=== PATIENT | female | born 1935 | race Caucasian/White ===

== ENCOUNTER 2017-02-21 11:23 | Emergency (ER) | payer OTHER ==
[~2017-02-21] VITALS: Ht 165.1 cm; Wt 98.7 kg
[~2017-02-21 11:23] MED LIST: ATOR40TA78 PO; LEVO125T5 PO; LISI1TAB3 PO; MELO-184 PO; METF500T4 PO; OMEP40CA6 PO
[2017-02-21 13:33] VITALS: BP 144/82
[2017-02-21 13:42] LABS: BLOOD UREA NITROGEN 13 mg/dL (7-18)
[2017-02-21 13:54] LABS: IS PT STATUS REG ER OR PRE ER? YES
== END 2017-02-21 16:07 | disposition home or self-care (01) ==
LOC: ED 14:28
DX: M13.132 Monoarthritis, not elsewhere classified, left wrist (principal); E11.9 Type 2 diabetes mellitus without complications; I11.0 Hypertensive heart disease with heart failure; I50.9 Heart failure, unspecified; F17.200 Nicotine dependence, unspecified, uncomplicated
CPT/HCPCS: 29125; 36415; 71020; 80048; 82040; 83880; 84484; 85025; 85651; 86140; 93005

== ENCOUNTER 2017-04-20 08:04 | Emergency (ER) | payer OTHER ==
[~2017-04-20] VITALS: Ht 165.1 cm; Wt 102.2 kg
[2017-04-20 08:26] VITALS: BP 145/71
[2017-04-20] MEDS ORDERED: ACETAMINOPHEN 325 MG TABLET PO ONE (08:30)
[2017-04-20] MEDS ORDERED: ACETAMINOPHEN 325 MG TABLET ONE (08:35)
== END 2017-04-20 11:26 | disposition home or self-care (01) ==
LOC: ED 09:27
DX: S83.92XA Sprain of unspecified site of left knee, initial encounter (principal); I11.0 Hypertensive heart disease with heart failure; I50.9 Heart failure, unspecified; E11.9 Type 2 diabetes mellitus without complications; E87.1 Hypo-osmolality and hyponatremia; Z85.3 Personal history of malignant neoplasm of breast; F17.210 Nicotine dependence, cigarettes, uncomplicated; X58.XXXA Exposure to other specified factors, initial encounter; Y93.89 Activity, other specified; Y99.8 Other external cause status; Y92.009 Unspecified place in unspecified non-institutional (private) residence as the place of occurrence of the external cause
CPT/HCPCS: 29505; 99284

== ENCOUNTER → 2017-06-27 | Outpatient (CLI) | payer OTHER ==
[~2017-06-27] MED LIST changes: -MELO-184 PO; +MELO15TA24 PO
== END | disposition home or self-care (01) ==
LOC: CFH 14:41
PROVIDERS: ATTEND Internal Medicine Cardiovascular Disease
DX: Z01.818 Encounter for other preprocedural examination (principal); I51.7 Cardiomegaly; I10 Essential (primary) hypertension; E11.9 Type 2 diabetes mellitus without complications; Z85.3 Personal history of malignant neoplasm of breast; Z87.891 Personal history of nicotine dependence; Z92.3 Personal history of irradiation
CPT/HCPCS: 93306

== ENCOUNTER → 2017-07-05 | Outpatient (CLI) | payer OTHER ==
[~2017-07-05] MED LIST changes: +REGADENOSON 0.4 MG/5 ML SYRINGE ONE
== END | disposition home or self-care (01) ==
LOC: RAD 10:56
PROVIDERS: ATTEND Internal Medicine Cardiovascular Disease
DX: I10 Essential (primary) hypertension (principal)
CPT/HCPCS: 78452; 93017; A9502; C9898; J2785

== ENCOUNTER 2018-01-21 09:02 | Inpatient (IN) | payer OTHER ==
[~2018-01-21] VITALS: Ht 165.1 cm; Wt 89.1 kg
[~2018-01-21 09:02] MED LIST changes: -REGADENOSON 0.4 MG/5 ML SYRINGE ONE
[2018-01-21] MEDS ORDERED: ALBUTEROL/IPRATROPIUM 2.5MG/0.5MG, 3 ML NPPB ONE (10:00)
[2018-01-21] MEDS ORDERED: ALBUTEROL/IPRATROPIUM 2.5MG/0.5MG, 3 ML ONE ×3 (10:02→19:55)
[2018-01-21 10:27] LABS: MEAN CORPUSCULAR HEMOGLOBIN 34.7 pg (27.0-34.8); MEAN CORPUSCULAR HGB CONC 33.9 g/dL (32.4-35.8); MEAN CORPUSCULAR VOLUME 102.3 fL (80-100); MEAN PLATELET VOLUME 6.7 fL (7.4-10.4); PLATELET COUNT 259 x10^3/uL (130-400); RED BLOOD COUNT 3.78 x10^6/uL (3.82-5.3); RED CELL DISTRIBUTION WIDTH 14.2 % (9.6-15.2)
[2018-01-21 10:32] LABS: INTERNATIONAL NORMALIZED RATIO 1.04 (0.93-1.1); PROTHROMBIN TIME 10.7 Seconds (9.6-11.5)
[2018-01-21 10:36] LABS: ALANINE AMINOTRANSFERASE 43 U/L (12-78); ALBUMIN 2.4 g/dL (3.4-5.0); ANION GAP 10 mmol/L (5-15); CALCIUM 8.6 mg/dL (8.5-10.1); CHLORIDE 92 mmol/L (98-107); CREATININE 1.45 mg/dL (0.55-1.02)
[2018-01-21 10:40] LABS: ALKALINE PHOSPHATASE 126 U/L (45-117); BILIRUBIN,TOTAL 0.9 mg/dL (0.2-1.0); TOTAL PROTEIN 6.5 g/dL (6.4-8.2); TROPONIN I < 0.015 ng/mL (0.000-0.045)
[2018-01-21] MEDS ORDERED: SODIUM CHLORIDE FLUSH 10ML SYR IVF ONE (11:00)
[2018-01-21 11:04] LABS: MD YES
[2018-01-21 11:07] LABS: BAND#(MANUAL) 1.74 x10^3/uL; BANDS%(MANUAL) 15 % (0-7); LYMPH#(MANUAL) 1.28 x10^3/uL (1-3.4); LYMPHS% (MANUAL) 11 % (22-44); METAMYELOCYTES# (MANUAL) 0.12 x10^3/uL (0-0); METAMYELOCYTES% (MANUAL) 1 % (0-1); MONOS#(MANUAL) 0.58 x10^3/uL (0.3-2.7); MONOS% (MANUAL) 5 % (2-9); REACTIVE LYMPHS # (MANUAL) 0.12 x10^3/uL (0-0); REACTIVE LYMPHS % (MANUAL) 1 % (0-0)
[2018-01-21 11:12] LABS: OTHER CELLS # (MANUAL) 0.23 x10^3/uL (0-0); OTHER CELLS % (MANUAL) 2 % (0-0); SEG#(MANUAL) 7.54 x10^3/uL (1.8-6.8); SEGS% (MANUAL) 65 % (42-75)
[2018-01-21 11:14] LABS: <RBC MORPHOLOGY> NORMAL; TOXIC GRAN 2+
[2018-01-21 11:15] LABS: <PLATELET ESTIMATE> ADEQUATE; <PLT MORPHOLOGY> NORMAL PLT MORPH; PMNS WITH VACUOLES 1+
[2018-01-21] MEDS ORDERED: HYDR-882 PO (11:38)
[2018-01-21] MEDS ORDERED: TURM500C7 PO (11:38)
[2018-01-21] MEDS ORDERED: CEFTRIAXONE PMX 1GM/50ML 50 ML ONE (11:40)
[2018-01-21] MEDS ORDERED: KETOROLAC 30 MG/1 ML ONE (11:46)
[2018-01-21] MEDS ORDERED: CEFTRIAXONE PMX 1GM/50ML 50 ML IV ONE (12:00)
[2018-01-21] MEDS ORDERED: ONDANSETRON ODT 4 MG PO PRN (13:00)
[2018-01-21] MEDS ORDERED: ONDANSETRON 2MG/ML, 2ML IVPush PRN (13:00)
[2018-01-21] MEDS ORDERED: LABETALOL 5MG/ML, 20ML IVPush PRN (13:00)
[2018-01-21] MEDS ORDERED: KETOROLAC 30 MG/1 ML IVPush ONE (13:00)
[2018-01-21] MEDS: SODIUM CHLORIDE 0.9% 1,000 ML IV SCH ×2 (13:30→21:21)
[2018-01-21 14:01] VITALS: BP 111/66
[2018-01-21 14:11] LABS: FREE T4 (FREE THYROXINE) 1.52 ng/dL (0.76-1.46); THYROID STIMULATING HORMONE 1.1 mIU/L (0.358-3.740)
[2018-01-21 14:12] LABS: FOLATE LEVEL 7.2 ng/mL (3.1-17.5)
[2018-01-21] MEDS: CEFTRIAXONE PMX 2GM/50ML 50 ML IV SCH (14:14)
[2018-01-21] MEDS ORDERED: METF850T2 PO (14:26)
[2018-01-21] MEDS ORDERED: LEVO112T4 PO (14:27)
[2018-01-21 14:49] LABS: MICROSCOPIC INDICATED
[2018-01-21] MEDS: ENOXAPARIN 40 MG/0.4 ML SQ SCH (15:06)
[2018-01-21] MEDS: GUAIFENESIN 200 MG TABLET PO SCH ×2 (15:06→21:16)
[2018-01-21] MEDS: methylPREDNISolone SOD SUCC 125 MG/2 ML IVPush SCH ×2 (15:07→21:16)
[2018-01-21 19:38] VITALS: BP 128/74
[2018-01-21] MEDS: DOXYCYCLINE 100MG TABLET PO SCH (21:16)
[2018-01-21] MEDS ORDERED: ALBUTEROL/IPRATROPIUM 2.5MG/0.5MG, 3 ML NPPB PRN (22:30)
[2018-01-22 03:09] VITALS: BP 137/62
[2018-01-22] MEDS: methylPREDNISolone SOD SUCC 125 MG/2 ML IVPush SCH ×2 (03:13→09:03)
[2018-01-22 04:43] LABS: BASOPHILS # (AUTO) 0.01 x10^3/uL (0-0.1); BASOPHILS % (AUTO) 0 % (0-1); EOSINOPHILS % (AUTO) 0 % (1-7); LYMPHOCYTES # (AUTO) 0.63 x10^3/uL (1-3.4); LYMPHOCYTES % (AUTO) 10 % (22-44); MD NO; MEAN CORPUSCULAR HEMOGLOBIN 33.8 pg (27.0-34.8); MEAN CORPUSCULAR HGB CONC 33.1 g/dL (32.4-35.8); MEAN CORPUSCULAR VOLUME 102.3 fL (80-100); MEAN PLATELET VOLUME 6.7 fL (7.4-10.4); MONOCYTES # (AUTO) 0.14 x10^3/uL (0.2-0.8); MONOCYTES % (AUTO) 2 % (2-9); NEUTROPHILS # (AUTO) 5.75 x10^3/uL (1.8-6.8); NEUTROPHILS % (AUTO) 88 % (42-75); PLATELET COUNT 238 x10^3/uL (130-400); RED BLOOD COUNT 3.47 x10^6/uL (3.82-5.3); RED CELL DISTRIBUTION WIDTH 14.5 % (9.6-15.2)
[2018-01-22 04:51] LABS: ANION GAP 9 mmol/L (5-15); CALCIUM 8.5 mg/dL (8.5-10.1); CHLORIDE 94 mmol/L (98-107)
[2018-01-22 04:54] LABS: ALANINE AMINOTRANSFERASE 52 U/L (12-78); ALKALINE PHOSPHATASE 138 U/L (45-117); BILIRUBIN,TOTAL 0.7 mg/dL (0.2-1.0); CREATININE 1.15 mg/dL (0.55-1.02); TOTAL PROTEIN 5.9 g/dL (6.4-8.2)
[2018-01-22] MEDS: SODIUM CHLORIDE 0.9% 1,000 ML IV SCH (05:21)
[2018-01-22] MEDS: GUAIFENESIN 200 MG TABLET PO SCH ×4 (06:39→23:53)
[2018-01-22] MEDS: ALBUTEROL/IPRATROPIUM 2.5MG/0.5MG, 3 ML NPPB SCH ×4 (06:50→19:03)
[2018-01-22] MEDS ORDERED: PANTOPRAZOLE 40 MG IV IVPush SCH (07:30)
[2018-01-22] MEDS: LEVOTHYROXINE 112 MCG TABLET PO SCH (07:46)
[2018-01-22 08:02] VITALS: BP 117/62
[2018-01-22] MEDS ORDERED: TEMPLATE NON-FORMULARY MED. (Omeprazole** 40 MG) PO SCH (09:00)
[2018-01-22] MEDS: SENNA/DOCUSATE TABLET PO SCH (09:00)
[2018-01-22] MEDS: DOXYCYCLINE 100MG TABLET PO SCH ×2 (09:03→21:04)
[2018-01-22 10:23] LABS: CREATININE,URINE RANDOM 55.2 mg/dL
[2018-01-22] MEDS: prednisOLONE 15 MG/5 ML ORAL SOLN PO SCH (11:37)
[2018-01-22] MEDS ORDERED: OMNIPAQUE 350 MG/ML, 75ML BOTTLE ONE (13:13)
[2018-01-22] MEDS: ENOXAPARIN 40 MG/0.4 ML SQ SCH (14:23)
[2018-01-22 14:40] LABS: RAPID INFLUENZA A Negative (Negative); RAPID INFLUENZA B Negative (Negative)
[2018-01-22 15:02] VITALS: BP 114/61
[2018-01-22] MEDS: CEFTRIAXONE PMX 2GM/50ML 50 ML IV SCH (15:52)
[2018-01-22] MEDS: ACETAMINOPHEN 325 MG TABLET PO PRN (15:52)
[2018-01-22 16:11] LABS: ANION GAP 9 mmol/L (5-15); CALCIUM 8.8 mg/dL (8.5-10.1); CHLORIDE 95 mmol/L (98-107); CREATININE 1.17 mg/dL (0.55-1.02)
[2018-01-22 19:17] VITALS: BP 130/57
[2018-01-22] MEDS: ATORVASTATIN 40 MG TABLET PO SCH (21:04)
[2018-01-23 01:53] VITALS: BP 145/74
[2018-01-23] MEDS: ACETAMINOPHEN 325 MG TABLET PO PRN (02:24)
[2018-01-23 04:38] LABS: MEAN CORPUSCULAR HGB CONC 33.2 g/dL (32.4-35.8); MEAN CORPUSCULAR VOLUME 102.3 fL (80-100); MEAN PLATELET VOLUME 6.9 fL (7.4-10.4); PLATELET COUNT 273 x10^3/uL (130-400); RED BLOOD COUNT 3.52 x10^6/uL (3.82-5.3); RED CELL DISTRIBUTION WIDTH 14.5 % (9.6-15.2)
[2018-01-23 04:49] LABS: ALANINE AMINOTRANSFERASE 117 U/L (12-78); ANION GAP 8 mmol/L (5-15); CALCIUM 8.8 mg/dL (8.5-10.1); CHLORIDE 95 mmol/L (98-107); CREATININE 1.28 mg/dL (0.55-1.02)
[2018-01-23 04:52] LABS: ALKALINE PHOSPHATASE 132 U/L (45-117); BILIRUBIN,TOTAL 0.4 mg/dL (0.2-1.0); TOTAL PROTEIN 5.9 g/dL (6.4-8.2)
[2018-01-23] MEDS: LEVOTHYROXINE 112 MCG TABLET PO SCH (05:33)
[2018-01-23] MEDS: GUAIFENESIN 200 MG TABLET PO SCH ×4 (05:33→19:49)
[2018-01-23 05:49] LABS: BASOPHILS # (AUTO) 0.02 x10^3/uL (0-0.1); BASOPHILS % (AUTO) 0 % (0-1); EOSINOPHILS % (AUTO) 0 % (1-7); LYMPHOCYTES # (AUTO) 1.11 x10^3/uL (1-3.4); LYMPHOCYTES % (AUTO) 8 % (22-44); MD SCAN; MONOCYTES # (AUTO) 0.99 x10^3/uL (0.2-0.8); MONOCYTES % (AUTO) 7 % (2-9); NEUTROPHILS # (AUTO) 12.03 x10^3/uL (1.8-6.8); NEUTROPHILS % (AUTO) 85 % (42-75)
[2018-01-23] MEDS: ALBUTEROL/IPRATROPIUM 2.5MG/0.5MG, 3 ML NPPB SCH ×4 (07:00→20:19)
[2018-01-23 07:30] VITALS: BP 124/67
[2018-01-23] MEDS: PANTOPROZOLE 40MG TABLET PO SCH (07:56)
[2018-01-23] MEDS ORDERED: CEFTRIAXONE PMX 2GM/50ML 50 ML IV SCH (08:00)
[2018-01-23] MEDS ORDERED: CEFTRIAXONE 2 GM in DEXTROSE 5% 100 ML IVPB SCH (08:00)
[2018-01-23] MEDS: CYANOCOBALAMIN 1,000 MCG TABLET PO SCH (08:32)
[2018-01-23] MEDS: DOXYCYCLINE 100MG TABLET PO SCH ×2 (08:32→19:49)
[2018-01-23] MEDS: FOLIC ACID 1 MG TABLET PO SCH (08:33)
[2018-01-23] MEDS: prednisOLONE 15 MG/5 ML ORAL SOLN PO SCH (08:33)
[2018-01-23] MEDS: SENNA/DOCUSATE TABLET PO SCH (08:34)
[2018-01-23] MEDS: INSULIN LISPRO 100 UNITS/ML, PEN SQ-INSULIN SCH ×3 (12:54→20:43)
[2018-01-23 13:58] LABS: ANION GAP 9 mmol/L (5-15); CALCIUM 8.7 mg/dL (8.5-10.1); CHLORIDE 97 mmol/L (98-107); CREATININE 1.19 mg/dL (0.55-1.02)
[2018-01-23] MEDS: ENOXAPARIN 40 MG/0.4 ML SQ SCH (14:37)
[2018-01-23 15:35] VITALS: BP 127/73
[2018-01-23 19:32] VITALS: BP 130/71
[2018-01-23] MEDS: ATORVASTATIN 40 MG TABLET PO SCH (19:49)
[2018-01-23] MEDS ORDERED: IBUPROFEN 200 MG TABLET ONE (21:17)
[2018-01-23] MEDS ORDERED: IBUPROFEN 200 MG TABLET PO ONE (21:30)
[2018-01-24 03:00] VITALS: BP 165/66
[2018-01-24 05:29] LABS: BASOPHILS # (AUTO) 0.02 x10^3/uL (0-0.1); BASOPHILS % (AUTO) 0 % (0-1); EOSINOPHILS # (AUTO) 0.03 x10^3/uL (0-0.4); EOSINOPHILS % (AUTO) 0 % (1-7); LYMPHOCYTES # (AUTO) 1.83 x10^3/uL (1-3.4); LYMPHOCYTES % (AUTO) 20 % (22-44); MD NO; MEAN CORPUSCULAR HEMOGLOBIN 33.8 pg (27.0-34.8); MEAN CORPUSCULAR HGB CONC 33.4 g/dL (32.4-35.8); MEAN PLATELET VOLUME 6.9 fL (7.4-10.4); MONOCYTES # (AUTO) 1.01 x10^3/uL (0.2-0.8); MONOCYTES % (AUTO) 11 % (2-9); NEUTROPHILS # (AUTO) 6.44 x10^3/uL (1.8-6.8); NEUTROPHILS % (AUTO) 69 % (42-75); PLATELET COUNT 294 x10^3/uL (130-400); RED BLOOD COUNT 3.65 x10^6/uL (3.82-5.3); RED CELL DISTRIBUTION WIDTH 14.1 % (9.6-15.2)
[2018-01-24 05:30] LABS: ALBUMIN 2.1 g/dL (3.4-5.0); ANION GAP 8 mmol/L (5-15); CALCIUM 8.6 mg/dL (8.5-10.1); CHLORIDE 99 mmol/L (98-107)
[2018-01-24 05:31] LABS: CREATININE 0.88 mg/dL (0.55-1.02)
[2018-01-24] MEDS: GUAIFENESIN 200 MG TABLET PO SCH ×2 (06:01→11:25)
[2018-01-24] MEDS: INSULIN LISPRO 100 UNITS/ML, PEN SQ-INSULIN SCH ×2 (07:00→11:00)
[2018-01-24] MEDS: ALBUTEROL/IPRATROPIUM 2.5MG/0.5MG, 3 ML NPPB SCH (07:08)
[2018-01-24] MEDS: PANTOPROZOLE 40MG TABLET PO SCH (07:56)
[2018-01-24] MEDS: LISINOPRIL 10 MG TABLET PO SCH ×2 (07:56→09:00)
[2018-01-24 08:13] VITALS: BP 118/66
[2018-01-24] MEDS ORDERED: GUAI200T3 PO (08:27)
[2018-01-24] MEDS ORDERED: DOXY100T PO (08:27)
[2018-01-24] MEDS ORDERED: CEFD300C37 PO (08:27)
[2018-01-24] MEDS ORDERED: CYAN10005 PO (08:27)
[2018-01-24] MEDS ORDERED: FOLI-17 PO (08:27)
[2018-01-24] MEDS ORDERED: PRED10TA PO (08:29)
[2018-01-24] MEDS: CYANOCOBALAMIN 1,000 MCG TABLET PO SCH (09:32)
[2018-01-24] MEDS: SENNA/DOCUSATE TABLET PO SCH (09:32)
[2018-01-24] MEDS: FOLIC ACID 1 MG TABLET PO SCH (09:32)
[2018-01-24] MEDS: DOXYCYCLINE 100MG TABLET PO SCH (09:32)
[2018-01-24] MEDS: LEVOTHYROXINE 112 MCG TABLET PO SCH (09:33)
[2018-01-24] MEDS: prednisOLONE 15 MG/5 ML ORAL SOLN PO SCH (09:33)
[2018-01-24] MEDS ORDERED: CEFTRIAXONE 2 GM in DEXTROSE 5% 50 ML IVPB SCH (10:00)
== END 2018-01-24 11:43 | disposition home or self-care (01) | DRG 871 ==
LOC: ED 11:07 → EDIP 12:21 → 3NW 13:50
PROVIDERS: ADMIT Internal Medicine; ATTEND Internal Medicine
DX: A41.9 Sepsis, unspecified organism (principal); J96.01 Acute respiratory failure with hypoxia; E43 Unspecified severe protein-calorie malnutrition; J18.9 Pneumonia, unspecified organism; I11.0 Hypertensive heart disease with heart failure; N17.9 Acute kidney failure, unspecified; E22.2 Syndrome of inappropriate secretion of antidiuretic hormone; I50.30 Unspecified diastolic (congestive) heart failure; J44.0 Chronic obstructive pulmonary disease with (acute) lower respiratory infection; D75.89 Other specified diseases of blood and blood-forming organs; E11.9 Type 2 diabetes mellitus without complications; J44.1 Chronic obstructive pulmonary disease with (acute) exacerbation; Z68.32 Body mass index [BMI] 32.0-32.9, adult; E78.5 Hyperlipidemia, unspecified; F17.200 Nicotine dependence, unspecified, uncomplicated; M16.12 Unilateral primary osteoarthritis, left hip; M17.12 Unilateral primary osteoarthritis, left knee; Z82.3 Family history of stroke; Z83.3 Family history of diabetes mellitus; Z85.3 Personal history of malignant neoplasm of breast
CPT/HCPCS: 36415; 71045; 71260; 76700; 80048; 80053; 81001; 82040; 82436; 82570; 82607; 82746; 82962; 83605; 83735; 83880; 83930; 83935; 84100; 84145; 84300; 84439; 84443; 84484; 85025; 85610; 87040; 87070; 87205; 87400; 93005; 93306; 94640; 96365; 96375; J0696; J1650; J1885; J7620; Q9967; C9113; J1815; J2930; J7030; J7510

== ENCOUNTER 2018-02-19 12:11 | Inpatient (IN) | payer OTHER ==
[~2018-02-19] VITALS: Ht 166.4 cm; Wt 84.9 kg
[~2018-02-19 12:11] MED LIST changes: +CEFD300C37 PO; +CYAN10005 PO; +DOXY100T PO; +FOLI-17 PO; +GUAI200T3 PO; +HYDR-882 PO; +LEVO112T4 PO; +METF850T2 PO; +PRED10TA PO; +TURM500C7 PO
[2018-02-19] MEDS ORDERED: SODIUM CHLORIDE FLUSH 10ML SYR IVF ONE (13:30)
[2018-02-19 13:59] LABS: INTERNATIONAL NORMALIZED RATIO 0.96 (0.93-1.1)
[2018-02-19] MEDS ORDERED: FUROSEMIDE 40 MG/4 ML IV ONE (14:00)
[2018-02-19 14:01] LABS: MEAN CORPUSCULAR HEMOGLOBIN 34.5 pg (27.0-34.8); MEAN CORPUSCULAR HGB CONC 33.8 g/dL (32.4-35.8); MEAN CORPUSCULAR VOLUME 102.2 fL (80-100); MEAN PLATELET VOLUME 7.1 fL (7.4-10.4); PLATELET COUNT 234 x10^3/uL (130-400); RED BLOOD COUNT 3.96 x10^6/uL (3.82-5.3)
[2018-02-19 14:02] LABS: BASOPHILS # (AUTO) 0.04 x10^3/uL (0-0.1); BASOPHILS % (AUTO) 0 % (0-1); EOSINOPHILS # (AUTO) 0.12 x10^3/uL (0-0.4); EOSINOPHILS % (AUTO) 1 % (1-7); LYMPHOCYTES # (AUTO) 2.32 x10^3/uL (1-3.4); LYMPHOCYTES % (AUTO) 27 % (22-44); MD NO; MONOCYTES # (AUTO) 0.62 x10^3/uL (0.2-0.8); MONOCYTES % (AUTO) 7 % (2-9); NEUTROPHILS # (AUTO) 5.62 x10^3/uL (1.8-6.8); NEUTROPHILS % (AUTO) 65 % (42-75)
[2018-02-19 14:05] LABS: ALANINE AMINOTRANSFERASE 28 U/L (12-78); ALBUMIN 3.1 g/dL (3.4-5.0); ANION GAP 9 mmol/L (5-15); CALCIUM 9.1 mg/dL (8.5-10.1); CHLORIDE 99 mmol/L (98-107)
[2018-02-19 14:10] LABS: ALKALINE PHOSPHATASE 89 U/L (45-117); CREATININE 0.81 mg/dL (0.55-1.02); TOTAL PROTEIN 6.8 g/dL (6.4-8.2); TROPONIN I < 0.015 ng/mL (0.000-0.045)
[2018-02-19] MEDS ORDERED: FUROSEMIDE 40 MG/4 ML ONE (14:17)
[2018-02-19 15:53] VITALS: BP 166/76
[2018-02-19] MEDS ORDERED: POTASSIUM CHLORIDE 20 MEQ TAB.ER.PRT PO ONE (16:00)
[2018-02-19] MEDS ORDERED: hydrALAzine 20 MG/ML, 1ML IVPush PRN (16:00)
[2018-02-19] MEDS ORDERED: morphine SULFATE 10 MG/ML, 1ML IVPush PRN (16:00)
[2018-02-19] MEDS ORDERED: ONDANSETRON 2MG/ML, 2ML IVPush PRN (16:00)
[2018-02-19] MEDS ORDERED: BISACODYL 10 MG SUPP PR PRN (16:00)
[2018-02-19 16:30] LABS: FREE T4 (FREE THYROXINE) 1.55 ng/dL (0.76-1.46)
[2018-02-19 16:52] LABS: HEMOGLOBIN A1C 7.2 % (4.2-6.3)
[2018-02-19] MEDS: FUROSEMIDE 20 MG/2 ML IV SCH (17:33)
[2018-02-19] MEDS: HEPARIN 5,000 UNITS/ML, 1ML SQ SCH (17:33)
[2018-02-19 17:37] VITALS: BP 135/75
[2018-02-19 19:22] LABS: TROPONIN I < 0.015 ng/mL (0.000-0.045)
[2018-02-19 19:28] VITALS: BP 123/84
[2018-02-19] MEDS ORDERED: GLUCAGON 1 MG IM PRN (21:30)
[2018-02-19] MEDS ORDERED: DEXTROSE 4 GM TAB.CHEW PO PRN (21:30)
[2018-02-19] MEDS ORDERED: DEXTROSE 50%, 50ML SYRINGE IVPush PRN (21:30)
[2018-02-19 22:11] LABS: TROPONIN I < 0.015 ng/mL (0.000-0.045)
[2018-02-19] MEDS: ACETAMINOPHEN 325 MG TABLET PO PRN (22:24)
[2018-02-19] MEDS: INSULIN LISPRO 100 UNITS/ML, PEN SQ-INSULIN SCH (22:24)
[2018-02-19] MEDS: SODIUM CHLORIDE FLUSH 10ML SYR IVF SCH (22:24)
[2018-02-19] MEDS: ATORVASTATIN 40 MG TABLET PO SCH (22:24)
[2018-02-20 02:55] VITALS: BP 137/72
[2018-02-20] MEDS: HEPARIN 5,000 UNITS/ML, 1ML SQ SCH ×3 (03:03→16:21)
[2018-02-20 04:48] LABS: BASOPHILS # (AUTO) 0.03 x10^3/uL (0-0.1); BASOPHILS % (AUTO) 0 % (0-1); EOSINOPHILS # (AUTO) 0.19 x10^3/uL (0-0.4); EOSINOPHILS % (AUTO) 3 % (1-7); LYMPHOCYTES # (AUTO) 2.38 x10^3/uL (1-3.4); LYMPHOCYTES % (AUTO) 33 % (22-44); MD NO; MEAN CORPUSCULAR HEMOGLOBIN 33.6 pg (27.0-34.8); MEAN CORPUSCULAR VOLUME 101.8 fL (80-100); MEAN PLATELET VOLUME 7.2 fL (7.4-10.4); MONOCYTES # (AUTO) 0.67 x10^3/uL (0.2-0.8); MONOCYTES % (AUTO) 9 % (2-9); NEUTROPHILS # (AUTO) 3.89 x10^3/uL (1.8-6.8); NEUTROPHILS % (AUTO) 54 % (42-75); PLATELET COUNT 249 x10^3/uL (130-400); RED BLOOD COUNT 3.83 x10^6/uL (3.82-5.3); RED CELL DISTRIBUTION WIDTH 14.9 % (9.6-15.2)
[2018-02-20 05:00] LABS: ANION GAP 9 mmol/L (5-15); CALCIUM 8.9 mg/dL (8.5-10.1); CHLORIDE 95 mmol/L (98-107)
[2018-02-20 05:11] LABS: CREATININE 0.95 mg/dL (0.55-1.02)
[2018-02-20] MEDS: INSULIN LISPRO 100 UNITS/ML, PEN SQ-INSULIN SCH ×4 (07:00→20:47)
[2018-02-20 08:30] VITALS: BP 119/85
[2018-02-20] MEDS: FOLIC ACID 1 MG TABLET PO SCH (10:37)
[2018-02-20] MEDS: FUROSEMIDE 20 MG/2 ML IV SCH ×2 (10:37→16:21)
[2018-02-20] MEDS: CYANOCOBALAMIN 1,000 MCG TABLET PO SCH (10:38)
[2018-02-20] MEDS: LEVOTHYROXINE 112 MCG TABLET PO SCH (10:38)
[2018-02-20] MEDS: SODIUM CHLORIDE FLUSH 10ML SYR IVF SCH ×2 (10:39→20:47)
[2018-02-20] MEDS: DOCUSATE 100 MG CAPSULE PO PRN (10:40)
[2018-02-20 14:30] VITALS: BP 136/76
[2018-02-20 19:52] VITALS: BP 131/73
[2018-02-20] MEDS: ATORVASTATIN 40 MG TABLET PO SCH (20:47)
[2018-02-21 00:53] VITALS: BP 145/81
[2018-02-21] MEDS: ACETAMINOPHEN 325 MG TABLET PO PRN (03:42)
[2018-02-21 05:17] LABS: BASOPHILS # (AUTO) 0.03 x10^3/uL (0-0.1); BASOPHILS % (AUTO) 0 % (0-1); EOSINOPHILS # (AUTO) 0.12 x10^3/uL (0-0.4); EOSINOPHILS % (AUTO) 1 % (1-7); LYMPHOCYTES # (AUTO) 2.56 x10^3/uL (1-3.4); LYMPHOCYTES % (AUTO) 30 % (22-44); MD NO; MEAN CORPUSCULAR HEMOGLOBIN 34.2 pg (27.0-34.8); MEAN CORPUSCULAR HGB CONC 33.7 g/dL (32.4-35.8); MEAN CORPUSCULAR VOLUME 101.5 fL (80-100); MEAN PLATELET VOLUME 7.1 fL (7.4-10.4); MONOCYTES # (AUTO) 0.67 x10^3/uL (0.2-0.8); MONOCYTES % (AUTO) 8 % (2-9); NEUTROPHILS # (AUTO) 5.16 x10^3/uL (1.8-6.8); NEUTROPHILS % (AUTO) 61 % (42-75); PLATELET COUNT 276 x10^3/uL (130-400); RED BLOOD COUNT 4.02 x10^6/uL (3.82-5.3); RED CELL DISTRIBUTION WIDTH 14.4 % (9.6-15.2)
[2018-02-21 05:22] LABS: CHLORIDE 94 mmol/L (98-107)
[2018-02-21 05:25] LABS: ANION GAP 8 mmol/L (5-15); CREATININE 0.82 mg/dL (0.55-1.02)
[2018-02-21] MEDS: INSULIN LISPRO 100 UNITS/ML, PEN SQ-INSULIN SCH ×4 (07:00→22:11)
[2018-02-21] MEDS: LEVOTHYROXINE 112 MCG TABLET PO SCH (08:26)
[2018-02-21] MEDS: FOLIC ACID 1 MG TABLET PO SCH (08:26)
[2018-02-21 08:27] VITALS: BP 121/69
[2018-02-21] MEDS: CYANOCOBALAMIN 1,000 MCG TABLET PO SCH (08:27)
[2018-02-21] MEDS: FUROSEMIDE 20 MG/2 ML IV SCH ×2 (08:27→16:05)
[2018-02-21] MEDS: HEPARIN 5,000 UNITS/ML, 1ML SQ SCH ×4 (08:27→22:15)
[2018-02-21] MEDS: SODIUM CHLORIDE FLUSH 10ML SYR IVF SCH ×2 (08:27→22:12)
[2018-02-21 13:25] VITALS: BP 123/73
[2018-02-21] MEDS ORDERED: OMNIPAQUE 350 MG/ML, 100ML BOTTLE ONE (19:40)
[2018-02-21 19:49] VITALS: BP 121/74
[2018-02-21] MEDS: ATORVASTATIN 40 MG TABLET PO SCH (22:12)
[2018-02-22 01:09] VITALS: BP 128/76
[2018-02-22 05:25] LABS: BASOPHILS # (AUTO) 0.04 x10^3/uL (0-0.1); BASOPHILS % (AUTO) 0 % (0-1); EOSINOPHILS % (AUTO) 1 % (1-7); LYMPHOCYTES # (AUTO) 2.51 x10^3/uL (1-3.4); LYMPHOCYTES % (AUTO) 26 % (22-44); MD NO; MEAN CORPUSCULAR HEMOGLOBIN 34.3 pg (27.0-34.8); MEAN CORPUSCULAR HGB CONC 33.6 g/dL (32.4-35.8); MEAN PLATELET VOLUME 6.9 fL (7.4-10.4); MONOCYTES % (AUTO) 8 % (2-9); NEUTROPHILS % (AUTO) 64 % (42-75); PLATELET COUNT 285 x10^3/uL (130-400); RED BLOOD COUNT 4.04 x10^6/uL (3.82-5.3); RED CELL DISTRIBUTION WIDTH 14.9 % (9.6-15.2)
[2018-02-22 05:37] LABS: CALCIUM 9.2 mg/dL (8.5-10.1); CHLORIDE 93 mmol/L (98-107)
[2018-02-22 05:41] LABS: ANION GAP 6 mmol/L (5-15)
[2018-02-22] MEDS: CYANOCOBALAMIN 1,000 MCG TABLET PO SCH (07:47)
[2018-02-22] MEDS: INSULIN LISPRO 100 UNITS/ML, PEN SQ-INSULIN SCH ×4 (07:48→22:27)
[2018-02-22] MEDS: FOLIC ACID 1 MG TABLET PO SCH (07:48)
[2018-02-22] MEDS: HEPARIN 5,000 UNITS/ML, 1ML SQ SCH ×3 (07:49→22:37)
[2018-02-22] MEDS: SODIUM CHLORIDE FLUSH 10ML SYR IVF SCH ×2 (07:49→21:00)
[2018-02-22] MEDS: LEVOTHYROXINE 112 MCG TABLET PO SCH (07:49)
[2018-02-22] MEDS: ACETAMINOPHEN 325 MG TABLET PO PRN (07:51)
[2018-02-22] MEDS ORDERED: FUROSEMIDE 20 MG TABLET PO SCH (08:00)
[2018-02-22 10:38] VITALS: BP 123/71
[2018-02-22] MEDS ORDERED: KETOROLAC 30 MG/1 ML IM PRN (13:00)
[2018-02-22 13:30] VITALS: BP 126/75
[2018-02-22 13:59] LABS: SODIUM,URINE RANDOM 38 mmol/L
[2018-02-22 14:04] LABS: OSMOLALITY,URINE 648 mOsm/kg (500-850)
[2018-02-22] MEDS ORDERED: AZITHROMYCIN 500 MG TABLET PO ONE (14:30)
[2018-02-22] MEDS: CEFTRIAXONE PMX 2GM/50ML 50 ML IV SCH (15:26)
[2018-02-22 19:47] VITALS: BP 115/60
[2018-02-22] MEDS: ATORVASTATIN 40 MG TABLET PO SCH (22:27)
[2018-02-22] MEDS: INSULIN GLARGINE 100 UNITS/ML, PEN SQ-INSULIN SCH (23:21)
[2018-02-23 02:36] VITALS: BP 117/70
[2018-02-23 05:35] LABS: BASOPHILS # (AUTO) 0.03 x10^3/uL (0-0.1); BASOPHILS % (AUTO) 0 % (0-1); EOSINOPHILS # (AUTO) 0.15 x10^3/uL (0-0.4); EOSINOPHILS % (AUTO) 2 % (1-7); LYMPHOCYTES % (AUTO) 28 % (22-44); MD NO; MEAN CORPUSCULAR HEMOGLOBIN 34.7 pg (27.0-34.8); MEAN CORPUSCULAR HGB CONC 33.6 g/dL (32.4-35.8); MEAN CORPUSCULAR VOLUME 103.1 fL (80-100); MEAN PLATELET VOLUME 7.1 fL (7.4-10.4); MONOCYTES # (AUTO) 0.73 x10^3/uL (0.2-0.8); MONOCYTES % (AUTO) 8 % (2-9); NEUTROPHILS # (AUTO) 5.75 x10^3/uL (1.8-6.8); NEUTROPHILS % (AUTO) 62 % (42-75); PLATELET COUNT 270 x10^3/uL (130-400); RED BLOOD COUNT 3.85 x10^6/uL (3.82-5.3); RED CELL DISTRIBUTION WIDTH 14.4 % (9.6-15.2)
[2018-02-23 05:53] LABS: ANION GAP 7 mmol/L (5-15); CALCIUM 9.2 mg/dL (8.5-10.1); CHLORIDE 93 mmol/L (98-107)
[2018-02-23 05:54] LABS: CREATININE 0.74 mg/dL (0.55-1.02)
[2018-02-23] MEDS: INSULIN LISPRO 100 UNITS/ML, PEN SQ-INSULIN SCH ×5 (07:00→22:06)
[2018-02-23 07:41] VITALS: BP 134/71
[2018-02-23] MEDS ORDERED: POTASSIUM CHLORIDE 20 MEQ TAB.ER.PRT PO ONE (08:00)
[2018-02-23] MEDS: SODIUM CHLORIDE FLUSH 10ML SYR IVF SCH ×2 (08:01→22:08)
[2018-02-23] MEDS: FOLIC ACID 1 MG TABLET PO SCH (08:01)
[2018-02-23] MEDS: FUROSEMIDE 20 MG TABLET PO SCH (08:01)
[2018-02-23] MEDS: LEVOTHYROXINE 112 MCG TABLET PO SCH (08:01)
[2018-02-23] MEDS: CYANOCOBALAMIN 1,000 MCG TABLET PO SCH (08:01)
[2018-02-23] MEDS: HEPARIN 5,000 UNITS/ML, 1ML SQ SCH ×3 (08:02→22:05)
[2018-02-23 12:11] LABS: SYN CELLS COUNTED 2206
[2018-02-23 13:21] VITALS: BP_SYST 125; BP_SYST 149; BP_DIAS 71; BP_DIAS 88
[2018-02-23] MEDS: CEFTRIAXONE PMX 2GM/50ML 50 ML IV SCH (13:46)
[2018-02-23 20:00] VITALS: BP 127/68
[2018-02-23] MEDS: INSULIN GLARGINE 100 UNITS/ML, PEN SQ-INSULIN SCH (22:05)
[2018-02-23] MEDS: ATORVASTATIN 40 MG TABLET PO SCH (22:06)
[2018-02-23] MEDS: DOCUSATE 100 MG CAPSULE PO PRN (22:08)
[2018-02-24 01:03] VITALS: BP 118/68
[2018-02-24 05:32] LABS: BASOPHILS # (AUTO) 0.03 x10^3/uL (0-0.1); BASOPHILS % (AUTO) 0 % (0-1); EOSINOPHILS # (AUTO) 0.09 x10^3/uL (0-0.4); EOSINOPHILS % (AUTO) 1 % (1-7); LYMPHOCYTES # (AUTO) 2.53 x10^3/uL (1-3.4); LYMPHOCYTES % (AUTO) 29 % (22-44); MD NO; MEAN CORPUSCULAR HGB CONC 34.1 g/dL (32.4-35.8); MEAN CORPUSCULAR VOLUME 102.5 fL (80-100); MEAN PLATELET VOLUME 7.3 fL (7.4-10.4); MONOCYTES % (AUTO) 9 % (2-9); NEUTROPHILS # (AUTO) 5.37 x10^3/uL (1.8-6.8); NEUTROPHILS % (AUTO) 61 % (42-75); PLATELET COUNT 290 x10^3/uL (130-400); RED CELL DISTRIBUTION WIDTH 14.1 % (9.6-15.2)
[2018-02-24 05:41] LABS: ANION GAP 8 mmol/L (5-15); CALCIUM 8.9 mg/dL (8.5-10.1); CHLORIDE 93 mmol/L (98-107); CREATININE 0.73 mg/dL (0.55-1.02)
[2018-02-24 07:34] VITALS: BP 151/71
[2018-02-24] MEDS: INSULIN LISPRO 100 UNITS/ML, PEN SQ-INSULIN SCH ×4 (08:25→22:10)
[2018-02-24] MEDS: LEVOTHYROXINE 112 MCG TABLET PO SCH (08:26)
[2018-02-24] MEDS: FUROSEMIDE 20 MG TABLET PO SCH (08:26)
[2018-02-24] MEDS: HEPARIN 5,000 UNITS/ML, 1ML SQ SCH ×2 (08:26→17:43)
[2018-02-24] MEDS: FOLIC ACID 1 MG TABLET PO SCH (08:26)
[2018-02-24] MEDS: SODIUM CHLORIDE FLUSH 10ML SYR IVF SCH ×2 (08:26→20:00)
[2018-02-24] MEDS: CYANOCOBALAMIN 1,000 MCG TABLET PO SCH (08:27)
[2018-02-24 13:34] VITALS: BP 123/70
[2018-02-24] MEDS: CEFTRIAXONE PMX 2GM/50ML 50 ML IV SCH (14:02)
[2018-02-24] MEDS ORDERED: [UNRECOGNIZED DRUG - OTHER] TP PRN (17:00)
[2018-02-24] MEDS: AZITHROMYCIN 500 MG in SODIUM CHLORIDE 0.9% 250 ML IV SCH (17:42)
[2018-02-24 18:38] VITALS: BP 132/74
[2018-02-24] MEDS: ATORVASTATIN 40 MG TABLET PO SCH (21:24)
[2018-02-24] MEDS: INSULIN GLARGINE 100 UNITS/ML, PEN SQ-INSULIN SCH (22:10)
[2018-02-25 00:51] VITALS: BP 146/70
[2018-02-25] MEDS: HEPARIN 5,000 UNITS/ML, 1ML SQ SCH ×4 (01:30→21:25)
[2018-02-25] MEDS: ACETAMINOPHEN 325 MG TABLET PO PRN (01:41)
[2018-02-25 05:25] LABS: BASOPHILS # (AUTO) 0.04 x10^3/uL (0-0.1); BASOPHILS % (AUTO) 0 % (0-1); EOSINOPHILS # (AUTO) 0.03 x10^3/uL (0-0.4); EOSINOPHILS % (AUTO) 0 % (1-7); LYMPHOCYTES # (AUTO) 2.22 x10^3/uL (1-3.4); LYMPHOCYTES % (AUTO) 24 % (22-44); MD NO; MEAN CORPUSCULAR HEMOGLOBIN 34.3 pg (27.0-34.8); MEAN CORPUSCULAR VOLUME 100.9 fL (80-100); MEAN PLATELET VOLUME 6.8 fL (7.4-10.4); MONOCYTES # (AUTO) 0.82 x10^3/uL (0.2-0.8); MONOCYTES % (AUTO) 9 % (2-9); NEUTROPHILS # (AUTO) 6.14 x10^3/uL (1.8-6.8); NEUTROPHILS % (AUTO) 66 % (42-75); PLATELET COUNT 343 x10^3/uL (130-400); RED BLOOD COUNT 3.95 x10^6/uL (3.82-5.3); RED CELL DISTRIBUTION WIDTH 14.3 % (9.6-15.2)
[2018-02-25 05:34] LABS: ANION GAP 8 mmol/L (5-15); CALCIUM 9.1 mg/dL (8.5-10.1); CHLORIDE 93 mmol/L (98-107)
[2018-02-25 05:37] LABS: CREATININE 0.65 mg/dL (0.55-1.02)
[2018-02-25 08:07] VITALS: BP 137/67
[2018-02-25] MEDS ORDERED: DICLOFENAC 3% TP PRN (08:30)
[2018-02-25] MEDS: CYANOCOBALAMIN 1,000 MCG TABLET PO SCH (08:34)
[2018-02-25] MEDS: LEVOTHYROXINE 112 MCG TABLET PO SCH (08:34)
[2018-02-25] MEDS: FUROSEMIDE 20 MG TABLET PO SCH (08:35)
[2018-02-25] MEDS: FOLIC ACID 1 MG TABLET PO SCH (08:35)
[2018-02-25] MEDS: SODIUM CHLORIDE FLUSH 10ML SYR IVF SCH ×2 (08:35→21:00)
[2018-02-25] MEDS: INSULIN LISPRO 100 UNITS/ML, PEN SQ-INSULIN SCH ×4 (08:36→21:26)
[2018-02-25 09:12] LABS: FOLATE LEVEL > 20.0 ng/mL (3.1-17.5)
[2018-02-25] MEDS: CEFTRIAXONE PMX 2GM/50ML 50 ML IV SCH (13:37)
[2018-02-25 14:16] VITALS: BP 151/76
[2018-02-25] MEDS: AZITHROMYCIN 500 MG in SODIUM CHLORIDE 0.9% 250 ML IV SCH (17:00)
[2018-02-25 18:30] VITALS: BP 152/72
[2018-02-25] MEDS: CEFDINIR 300 MG CAPSULE PO SCH (21:25)
[2018-02-25] MEDS: ATORVASTATIN 40 MG TABLET PO SCH (21:26)
[2018-02-25] MEDS: INSULIN GLARGINE 100 UNITS/ML, PEN SQ-INSULIN SCH (21:27)
[2018-02-26 02:05] VITALS: BP 146/62
[2018-02-26 07:35] VITALS: BP 127/63
[2018-02-26] MEDS: FUROSEMIDE 20 MG TABLET PO SCH (08:11)
[2018-02-26] MEDS: INSULIN LISPRO 100 UNITS/ML, PEN SQ-INSULIN SCH ×2 (08:11→11:00)
[2018-02-26] MEDS: CEFDINIR 300 MG CAPSULE PO SCH (08:11)
[2018-02-26] MEDS: LEVOTHYROXINE 112 MCG TABLET PO SCH (08:12)
[2018-02-26] MEDS: CYANOCOBALAMIN 1,000 MCG TABLET PO SCH (08:12)
[2018-02-26] MEDS: FOLIC ACID 1 MG TABLET PO SCH (08:12)
[2018-02-26] MEDS: HEPARIN 5,000 UNITS/ML, 1ML SQ SCH (08:13)
[2018-02-26] MEDS: SODIUM CHLORIDE FLUSH 10ML SYR IVF SCH (09:00)
[2018-02-26] MEDS ORDERED: AZITHROMYCIN 500 MG TABLET PO SCH (09:00)
[2018-02-26] MEDS ORDERED: CEFD300C37 PO (09:01)
[2018-02-26] MEDS ORDERED: POTA10TA5 PO (09:01)
[2018-02-26] MEDS ORDERED: AZIT500T5 PO (09:01)
[2018-02-26] MEDS ORDERED: FURO20TA3 PO (09:01)
[2018-02-26 10:32] LABS: ANION GAP 7 mmol/L (5-15); CALCIUM 9.1 mg/dL (8.5-10.1); CHLORIDE 93 mmol/L (98-107); CREATININE 0.84 mg/dL (0.55-1.02)
== END 2018-02-26 12:19 | disposition home or self-care (01) | DRG 291 ==
LOC: ED 14:19 → EDIP 14:20 → ED 14:32 → 5SO 16:07 → DCLOUNGE 02-26 11:06
PROVIDERS: ADMIT Internal Medicine Pulmonary Disease; ATTEND Internal Medicine Pulmonary Disease
PROC: 0S9D3ZZ Drainage of Left Knee Joint, Percutaneous Approach (ICD-10-PCS; principal; 2018-02-23)
DX: I11.0 Hypertensive heart disease with heart failure (principal); J96.01 Acute respiratory failure with hypoxia; E44.1 Mild protein-calorie malnutrition; E87.1 Hypo-osmolality and hyponatremia; I50.33 Acute on chronic diastolic (congestive) heart failure; E11.65 Type 2 diabetes mellitus with hyperglycemia; J84.10 Pulmonary fibrosis, unspecified; E78.5 Hyperlipidemia, unspecified; M17.12 Unilateral primary osteoarthritis, left knee; M20.10 Hallux valgus (acquired), unspecified foot; M25.462 Effusion, left knee; M21.00 Valgus deformity, not elsewhere classified, unspecified site; M81.0 Age-related osteoporosis without current pathological fracture; Z82.3 Family history of stroke; Z83.3 Family history of diabetes mellitus; Z85.3 Personal history of malignant neoplasm of breast; Z99.81 Dependence on supplemental oxygen; Z68.30 Body mass index [BMI] 30.0-30.9, adult
CPT/HCPCS: 20611; 36415; 71045; 71275; 80048; 80053; 82607; 82746; 82962; 83036; 83735; 83880; 83930; 83935; 84100; 84300; 84439; 84443; 84484; 85025; 85610; 85810; 87070; 87205; 89050; 89060; 93005; 96374; J0456; J0696; J1644; J1885; J1940; Q9967; J1815; J7050